=== PATIENT | male | born 1980 | race Caucasian/White ===

== ENCOUNTER 2023-01-09 18:57 | Emergency (ER) | payer BC ==
[~2023-01-09] VITALS: Ht 188 cm; Wt 153.0 kg
[2023-01-09] MEDS ORDERED: AZIL40TA PO (19:18)
[2023-01-09 19:37] LABS: BASOPHILS % (AUTO) 0.5 % (0.0-2.0); EOSINOPHILS # (AUTO) 0.2 K/uL (0.0-0.7); EOSINOPHILS % (AUTO) 2.4 % (0.0-7.0); HEMATOCRIT 45.9 % (36.7-47.1); HEMOGLOBIN 15.2 g/dL (12.5-16.3); LYMPHOCYTES # (AUTO) 4.7 K/uL (0.8-4.8); LYMPHOCYTES % (AUTO) 48.4 % (20.5-51.5); MEAN CORPUSCULAR HEMOGLOBIN 29.5 uug (23.8-33.4); MEAN CORPUSCULAR HGB CONC 33 g/dL (32.5-36.3); MEAN CORPUSCULAR VOLUME 89.1 fL (73.0-96.2); MONOCYTES # (AUTO) 0.7 K/uL (0.1-1.30); MONOCYTES % (AUTO) 7.1 % (0.0-11.0); NEUTROPHILS % (AUTO) 41.6 % (38.5-71.5); PLATELET COUNT (AUTO) 258 K/uL (152-348); RED BLOOD CELL COUNT(AUTO) 5.16 MIL/uL (4.06-5.63); RED CELL DISTRIBUTION WIDTH 13.6 % (12.1-16.2); WHITE BLOOD COUNT (AUTO) 9.7 K/uL (3.6-10.2)
[2023-01-09 19:41] LABS: DIFFERENTIAL COMMENT 1
[2023-01-09 19:53] LABS: CALCIUM 9.4 mg/dL (8.5-10.1); CARBON DIOXIDE 22 mmol/L (21-32); CHLORIDE 106 mmol/L (98-107); CREATININE 1.2 mg/dL (0.6-1.3); GLUCOSE 101 mg/dL (74-106); SODIUM SERUM 145 mmol/L (136-145); UREA NITROGEN, BLOOD 13 mg/dL (7-18)
[2023-01-09 19:57] LABS: ETHANOL < 3 MG/DL (0-10)
[2023-01-09 19:59] LABS: ALANINE AMINOTRANSFERASE 51 U/L (16-63); ALBUMIN 4.2 g/dL (3.4-5.0); ALKALINE PHOSPHATASE 61 U/L (50-136); ASPARTATE AMINOTRANSFERASE 23 U/L (15-37); BILIRUBIN,DIRECT 0.1 mg/dL (0.0-0.2); BILIRUBIN,TOTAL 0.4 mg/dL (0.2-1.0); TOTAL PROTEIN, SERUM 7.4 g/dL (6.4-8.2)
[2023-01-09] MEDS ORDERED: LACO50TA2 PO (20:54)
[2023-01-09 21:25] VITALS: BP 142/77; O2SAT 95
== END 2023-01-09 21:25 | disposition home or self-care (01) ==
LOC: ER 19:00
DX: R56.9 Unspecified convulsions (principal); I10 Essential (primary) hypertension; Z79.899 Other long term (current) drug therapy; Z88.8 Allergy status to other drugs, medicaments and biological substances
CPT/HCPCS: 85025; 93005; A4663; G0480

== ENCOUNTER 2023-11-06 11:45 | Emergency (ER) | payer BC ==
[~2023-11-06] VITALS: Ht 188 cm; Wt 131.5 kg
[~2023-11-06 11:45] MED LIST: AZIL40TA PO; LACO50TA2 PO
[2023-11-06] MEDS: ACETAMINOPHEN 500 MG TABLET PO ONE (12:57)
[2023-11-06] MEDS ORDERED: ACETAMINOPHEN 500 MG TABLET ONE (12:59)
[2023-11-06 13:00] VITALS: O2SAT 97
== END 2023-11-06 13:04 | disposition home or self-care (01) ==
LOC: ER 11:45
DX: G40.909 Epilepsy, unspecified, not intractable, without status epilepticus (principal); I10 Essential (primary) hypertension; E78.5 Hyperlipidemia, unspecified; Z88.8 Allergy status to other drugs, medicaments and biological substances; Z79.899 Other long term (current) drug therapy
CPT/HCPCS: A4606; A4663; A9150

== ENCOUNTER 2024-01-22 12:55 | Emergency (ER) | payer BC ==
[~2024-01-22] VITALS: Ht 190.5 cm; Wt 113.4 kg
[2024-01-22] MEDS ORDERED: LORAZEPAM 2 MG/1 ML VIAL ONE (13:03)
[2024-01-22 13:11] LABS: BASOPHILS # (AUTO) 0.1 K/UL (0.0-0.2); BASOPHILS % (AUTO) 0.4 % (0.0-2.0); EOSINOPHILS # (AUTO) 0.4 K/uL (0.0-0.7); EOSINOPHILS % (AUTO) 1.9 % (0.0-7.0); HEMATOCRIT 51.5 % (36.7-47.1); HEMOGLOBIN 16.3 g/dL (12.5-16.3); LYMPHOCYTES # (AUTO) 12.3 K/uL (0.8-4.8); LYMPHOCYTES % (AUTO) 65.4 % (20.5-51.5); MEAN CORPUSCULAR HEMOGLOBIN 29.6 uug (23.8-33.4); MEAN CORPUSCULAR HGB CONC 32 g/dL (32.5-36.3); MEAN CORPUSCULAR VOLUME 93.6 fL (73.0-96.2); MONOCYTES # (AUTO) 1.1 K/uL (0.1-1.30); MONOCYTES % (AUTO) 5.8 % (0.0-11.0); NEUTROPHILS % (AUTO) 26.5 % (38.5-71.5); PLATELET COUNT (AUTO) 271 K/uL (152-348); RED BLOOD CELL COUNT(AUTO) 5.51 MIL/uL (4.06-5.63); RED CELL DISTRIBUTION WIDTH 14.1 % (12.1-16.2); WHITE BLOOD COUNT (AUTO) 18.8 K/uL (3.6-10.2)
[2024-01-22 13:15] LABS: DIFFERENTIAL COMMENT 1
[2024-01-22 13:25] LABS: CALCIUM 9.4 mg/dL (8.5-10.1); CARBON DIOXIDE 15 mmol/L (21-32); CHLORIDE 103 mmol/L (98-107); CREATININE 1.1 mg/dL (0.6-1.3); GLUCOSE 138 mg/dL (74-106); SODIUM SERUM 143 mmol/L (136-145); UREA NITROGEN, BLOOD 16 mg/dL (7-18)
[2024-01-22 13:27] LABS: ETHANOL < 3 MG/DL (0-10)
[2024-01-22] MEDS: LORAZEPAM 2 MG/1 ML VIAL IM ONE (13:32)
[2024-01-22] MEDS: IV NORMAL SALINE 1000 ML BAG IV ONE (13:40)
[2024-01-22 14:21] LABS: *AMPHETAMINE, URINE NEGATIVE (NEGATIVE); *BARBITURATE, URINE NEGATIVE (NEGATIVE); *BENZODIAZEPINE, URINE NEGATIVE (NEGATIVE); *CANNABINOID, URINE POSITIVE (NEGATIVE); *COCCAINE, URINE NEGATIVE (NEGATIVE); *OPIATE, URINE NEGATIVE (NEGATIVE); *PHENCYCLIDINE SCREEN,URINE NEGATIVE (NEGATIVE); FENTANYL, URINE NEGATIVE (NEGATIVE)
[2024-01-22 16:39] VITALS: BP 127/79; O2SAT 97
== END 2024-01-22 14:55 | disposition home or self-care (01) ==
LOC: ER 12:55
DX: G40.909 Epilepsy, unspecified, not intractable, without status epilepticus (principal); D72.829 Elevated white blood cell count, unspecified; I10 Essential (primary) hypertension; E78.5 Hyperlipidemia, unspecified; Z98.890 Other specified postprocedural states; Z79.899 Other long term (current) drug therapy; Z60.2 Problems related to living alone; Z91.040 Latex allergy status
CPT/HCPCS: 80048; 82962; 85025; 36415; 93005; 71045; 70450; 99291; 96360; 96372; 80320; 80307; J2060; J7040 ×2; A4606; A4663; G0480

== ENCOUNTER 2024-03-09 05:43 | Emergency (ER) | payer BC ==
[~2024-03-09] VITALS: Ht 185.4 cm; Wt 140.6 kg
[2024-03-09] MEDS ORDERED: LACOSAMIDE 200 MG in IV NORMAL SALINE 100 ML IV ONE (05:45)
[2024-03-09] MEDS ORDERED: AMLO-212 PO (05:51)
[2024-03-09] MEDS ORDERED: LACOSAMIDE 50 MG TABLET ONE (05:56)
[2024-03-09 07:31] VITALS: BP 114/75; O2SAT 96
== END 2024-03-09 07:34 | disposition home or self-care (01) ==
LOC: ER 05:45
DX: G40.909 Epilepsy, unspecified, not intractable, without status epilepticus (principal); I48.0 Paroxysmal atrial fibrillation; I11.9 Hypertensive heart disease without heart failure; F12.90 Cannabis use, unspecified, uncomplicated; E78.5 Hyperlipidemia, unspecified; Z98.890 Other specified postprocedural states; Z87.820 Personal history of traumatic brain injury; Z88.8 Allergy status to other drugs, medicaments and biological substances; Z91.041 Radiographic dye allergy status
CPT/HCPCS: 71045; A4606; A4663